=== PATIENT | male | born 1970 ===

== ENCOUNTER 2022-03-03 12:20 | Emergency (ER) | payer SELFPAY ==
[~2022-03-03] VITALS: Ht 165.1 cm; Wt 61.4 kg
[2022-03-03 12:23] VITALS: BP 144/86
== END 2022-03-03 13:15 | disposition left against medical advice (07) ==
LOC: ER 12:21
DX: Z02.89 Encounter for other administrative examinations (principal); F41.9 Anxiety disorder, unspecified; R42 Dizziness and giddiness; R45.1 Restlessness and agitation; F12.90 Cannabis use, unspecified, uncomplicated; Z88.8 Allergy status to other drugs, medicaments and biological substances
CPT/HCPCS: 99281